=== PATIENT | male | born 1970 | race Caucasian/White ===

== ENCOUNTER 2020-10-03 11:25 | Emergency (ER) | payer OTHER, SELFPAY ==
[2020-10-03 11:38] VITALS: BP 160/95; PULSE 78; RESP 18; TEMP 36.8; O2SAT 100
--- NOTE | 2020-10-03 11:40 | ED.EXTPRO ---
HPI - Extremity Problem General Chief complaint: Extremity Injury, Lower Stated complaint: Knee Pain Time Seen by Provider: 10/03/20 12:02 Source: patient and RN notes reviewed Mode of arrival: ambulatory Limitations: no limitations History of Present Illness HPI Narrative: 49-year-old male presents concern for low back pain that radiates to the right hip, thigh, knee. Reports on Saturday he was lifting something heavy at work when he felt the pain began in his right low back/buttock area. Reports the pain is radiating to the thigh and the knee. Reports pain at rest, mildly aggravated pain with weightbearing. Denies pain or palpitation. Denies swelling, bruising, redness, warmth. Denies direct injury or trauma to the knee. Denies any open skin. Denies fever or general body aches. Denies history of gout. Denies intervention MD Complaint: extremity pain Related Data Allergies Allergy/AdvReac Type Severity Reaction Status Date / Time No Known Allergies Allergy Verified 10/03/20 11:43 Review of Systems Review of Systems: CONSTITUTIONAL: Denies malaise, chills, sweats, or fever. CARDIOVASCULAR: Denies chest pain, palpitations, or edema. RESPIRATORY: Denies cough or dyspnea. GASTROINTESTINAL: Denies abdominal pain, nausea, vomiting, diarrhea, bloody, or mucous stools. GENITOURINARY: Denies dysuria or hematuria. SKIN: Denies bruising, redness, open skin, rash or itching. MUSCULOSKELETAL: Reports right low back pain radiating to the right thigh and knee NEUROLOGIC: Denies numbness, weakness, or headache. pression. All systems reviewed & are unremarkable except as noted in HPI and below PMFSH Comments At time of signature, agree with nursing past medical, surgical, social and family history. There is no relevant family history pertinent to the presenting complaint Exam Narrative: GENERAL: Well-appearing, well-nourished, and in no acute distress. HEAD: Normocephalic, atraumatic. EYES: PERRLA and EOMI. NECK: Supple. No lymphadenopathy. CHEST: Clear to auscultation. No respiratory distress. HEART: Regular rate and rhythm. Distal pulses palpable and equal, cap refill <3 seconds MUSCULOSKELETAL: Grossly normal range of motion and strength in all extremities; 5/5 strength knee flexion and extension, plantar flexion and extension. Normal sensation in dermatomal distributions with sensitivity to light touch and pain. No midline back tenderness to palpation. No paraspinal tenderness. Transfers from lying to sitting to standing. Mild anterior knee tenderness, negative Lashay test, negative anterior drawer test, negative Lever test. SKIN: Warm, dry, no rash. No ecchymosis, erythema, open wounds to back. NEURO: No focal deficits. Alert and oriented x3. Reflexes intact. Normal gait. PSYCH: Normal mood and affect Course Course Emergency Course: Patient is aware of diagnosis, understands and agrees to treatment plan. Anticipatory guidance given. Patient agrees to follow-up as directed and is aware of reasons to seek care at the emergency department. Portions of this record may have been created with voice recognition software Vital Signs Vital signs: Vital Signs Temperature 98.2 F 10/03/20 11:38 Pulse Rate 78 10/03/20 11:38 Respiratory Rate 18 10/03/20 11:38 Blood Pressure 160/95 H 10/03/20 11:38 Pulse Oximetry 100 10/03/20 11:38 Temperature 98.2 F 10/03/20 11:38 Pulse Rate 78 10/03/20 11:38 Respiratory Rate 18 10/03/20 11:38 Blood Pressure 160/95 H 10/03/20 11:38 Pulse Oximetry 100 10/03/20 11:38 Reviewed. Pt has been instructed to follow up with his primary care provider within the next week regarding his elevated blood pressure today. MDM - Extremity (Nontraumatic) MDM Narrative Medical decision making narrative: No risk factors or findings concerning for epidural abscess, diskitis, vertebral osteomyelitis, cord compression, cauda equina, vertebral fracture or bone malignancy, AAA, or pyelonephritis.
== END 2020-10-03 12:21 | disposition home or self-care (01) ==
PROVIDERS: Emergency Provider Nurse Practitioner
DX: M54.31 Sciatica, right side (principal)
CPT/HCPCS: 99203; G0463

== ENCOUNTER 2021-03-02 09:52 | Emergency (ER) | payer OTHER, SELFPAY ==
[2021-03-02 10:04] VITALS: BP 167/90; PULSE 80; RESP 16; TEMP 36.6; O2SAT 95
--- NOTE | 2021-03-02 10:47 | PC.NURSE ---
pt denies receiving covid vaccine
[2021-03-02 11:02] LABS: Basophils Percent Auto 0.1 % (0.2-1.2); Eosinophils Absolute Auto 0.1 K/mm3 (0-0.3); Eosinophils Percent Auto 1.6 % (0-4.4); Hematocrit 51.3 % (42.0-52.0); Hemoglobin 17.2 g/dL (14.0-18.0); Immature Granulocyte Absolute 0.02 K/mm3 (0.00-0.031); Immature Granulocyte Percent A 0.3 % (0-0.5); Lymphocytes Absolute Auto 1.54 K/mm3 (0.9-3.2); Lymphocytes Percent Auto 19.3 % (18.3-44.2); Mean Corpuscular HGB Conc 33.5 g/dl (32-36); Mean Corpuscular Hemoglobin 30.6 pg (26-34); Mean Corpuscular Volume 91.1 fl (80-100); Mean Platelet Volume 8.6 fl (7.4-10.4); Monocytes Absolute Auto 0.8 K/mm3 (0.1-0.6); Monocytes Percent Auto 9.8 % (2.6-8.5); Neutrophils Absolute Auto 5.5 K/mm3 (1.3-6.7); Neutrophils Percent Auto 68.9 % (45.5-73.1); Platelet Count Result 337 k/mm3 (150-375); Red Blood Count 5.63 M/mm3 (4.6-6.20); Red Cell Distribution Width 13.3 % (11.5-14.5)
[2021-03-02 11:13] LABS: Alanine Aminotransferase 23 U/L (4-50); Albumin Level 4.7 g/dL (3.5-5.1); Alkaline Phosphatase 83 U/L (38-126); Anion Gap 11 mmol/L (8-16); Aspartate Amino Transferase 27 U/L (17-59); Bilirubin,Total 0.6 mg/dL (0.2-1.3); Blood Urea Nitrogen 14 mg/dL (9-20); Calcium 9.6 mg/dL (8.4-10.2); Carbon Dioxide 24 mmol/L (22-30); Chloride 103 mmol/L (98-107); Estimated CRCL calculation 141 ml/min; Estimated Glomerular Filt Rate > 60; Glucose 115 mg/dL (65-110); Lipase 131 U/L (23-300); Potassium 4.3 mmol/L (3.4-5.0); Sodium 138 mmol/L (137-145)
--- NOTE | 2021-03-02 12:32 | ED.GENADULT ---
HPI - General Adult General Chief complaint: Nausea/Vomiting/Diarrhea Stated complaint: nausea, vomiting, diarrhea Time Seen by Provider: 03/02/21 10:48 Source: patient Mode of arrival: ambulatory Limitations: no limitations History of Present Illness HPI narrative: Patient is a 50-year-old male with chief complaints of headache, body aches, nausea, vomiting, diarrhea over the last 2 days. Patient reports that he has been told that he has had many COVID exposures from work and wants to be tested. Patient denies any pain to his abdomen. He denies any fevers. He reports that he is able to keep down food and fluids. Patient denies any weakness, dizziness, changes to vision or hearing, chest pain, shortness of breath, neurological deficits. Patient reports that he wants to be tested for flu and COVID. Related Data Allergies Allergy/AdvReac Type Severity Reaction Status Date / Time No Known Allergies Allergy Verified 10/03/20 11:43 Review of Systems Review of Systems: CONSTITUTIONAL: Reports body denies fever, chills, or sweats. EYES: Denies visual changes, redness, or discharge. ENT: Denies rhinorrhea, congestion, sore throat, or otalgia. CARDIOVASCULAR: Denies chest pain, palpitations, or edema. RESPIRATORY: Denies cough or dyspnea. GASTROINTESTINAL: Reports nausea, vomiting, or diarrhea. Denies abdominal pain GENITOURINARY: Denies dysuria or hematuria. SKIN: Denies rash or itching. MUSCULOSKELETAL: Denies back pain, joint pain, or myalgia. NEUROLOGIC: Reports headache, denies numbness, dizziness, or weakness. PSYCHIATRIC: Denies anxiety or depression. Exam Narrative: GENERAL: Well-appearing, well-nourished, and in no acute distress. Nontoxic in appearance. HEAD: Normocephalic, atraumatic. EYES: PERRLA and EOMI. NECK: Supple. Range of motion intact without nuchal rigidity. CHEST: Clear to auscultation. No respiratory distress. No wheezes rales or rhonchi HEART: Regular rate and rhythm. ABDOMEN: Soft, nontender, nondistended, normal active bowel sounds. EXTREMITIES: Normal range of motion. No edema. SKIN: Warm, dry, no rash. NEURO: No focal deficits. Alert and oriented x3. PSYCH: Normal mood and affect. Course Vital Signs Vital signs: Vital Signs Temperature 97.9 F 03/02/21 10:04 Pulse Rate 80 03/02/21 10:04 Respiratory Rate 16 03/02/21 10:04 Blood Pressure 167/90 H 03/02/21 10:04 Pulse Oximetry 95 03/02/21 10:04 Temperature 97.9 F 03/02/21 10:04 Pulse Rate 80 03/02/21 10:04 Respiratory Rate 16 03/02/21 10:04 Blood Pressure 167/90 H 03/02/21 10:04 Pulse Oximetry 95 03/02/21 10:04 Medical Decision Making MDM Narrative Medical decision making narrative: Patient is nontoxic in appearance. Patient vitals are stable. Patient does have some hypertension noted. Patient white blood cell count is within normal ranges and his lab work is without significant findings. Patient has been tested for influenza which was negative. Patient has been tested for COVID. Discussed the needs to quarantine and look on the patient portal for his COVID results in 24 to 48 hours. Patient has been instructed to return to emergency department should he develop any emergent symptoms. Patient denies any fluids or medications in emergency department. He is agreeable with Zofran prescription for home. Patient has been able to tolerate food and fluids p.o. Patient denies any other needs or concerns. Patient states he is ready for discharge at this time. Vital Signs Vital Signs: Vital Signs Temperature 97.9 F 03/02/21 10:04 Pulse Rate 80 03/02/21 10:04 Respiratory Rate 16 03/02/21 10:04 Blood Pressure 167/90 H 03/02/21 10:04 Pulse Oximetry 95 03/02/21 10:04 Temperature 97.9 F 03/02/21 10:04 Pulse Rate 80 03/02/21 10:04 Respiratory Rate 16 03/02/21 10:04 Blood Pressure 167/90 H 03/02/21 10:04 Pulse Oximetry 95 03/02/21 10:04 Lab Data Result diagrams: 03/02/21 10
[2021-03-02 20:41] LABS: SARS-CoV-2 RNA PCR Negative
== END 2021-03-02 12:04 | disposition home or self-care (01) ==
PROVIDERS: Physician Assistant; Emergency Provider Emergency Medicine
DX: R51.9 Headache, unspecified (principal); Z20.822 Contact with and (suspected) exposure to COVID-19
CPT/HCPCS: 36415; 80053; 83690; 85025; 87804; 99283; C9803; U0003; U0005

== ENCOUNTER 2021-06-09 22:37 | Emergency (ER) | payer OTHER, SELFPAY ==
--- NOTE | ~2021-06-09 | XR_ITS ---
EXAMINATION: XR knee LT 3V DATE: 06/09/2021 23:01 INDICATION: Blunt trauma to the left knee TECHNIQUE: Anteroposterior, 2 oblique and crosstable lateral views of the affected knee were obtained COMPARISON: None. FINDINGS: Alignment is normal. No fracture. Joint spaces are normal. L2-3 millimeters thin wire-like metallic foreign body projecting over the Hoffa's fat pad at the anterolateral left knee. No joint effusion/la yering lipohemarthrosis. Prepatellar soft tissue swelling. IMPRESSION: 1. No left knee joint effusion or osseous abnormality. 2. Age indeterminate tiny metallic foreign body in the soft tissues at the anterolateral left knee. Reviewed, dictated and finalized at location A. IMPRESSION: 1. No left knee joint effusion or osseous abnormality. 2. Age indeterminate tiny metallic foreign body in the soft tissues at the ante rolateral left knee.
[2021-06-09 22:44] VITALS: BP 154/96; PULSE 88; RESP 18; TEMP 36.8; O2SAT 96
--- NOTE | 2021-06-09 23:21 | ED.LOWEXIN ---
HPI - Extremity Injury (Lower) General Chief Complaint: Extremity Injury, Lower Stated Complaint: hurt left knee at work Time Seen by Provider: 06/09/21 22:47 History of Present Illness HPI Narrative: 50-year-old male presents to the emergency room for evaluation of left knee pain. Patient states he was at work and he accidentally dropped an oil pad with approximately 40 pounds with a foil onto his left knee. Patient states pain is worse with ambulation and movement. Related Data Allergies Allergy/AdvReac Type Severity Reaction Status Date / Time No Known Allergies Allergy Verified 10/03/20 11:43 Review of Systems Review of Systems: CONSTITUTIONAL: Denies fever, chills, or sweats. EYES: Denies visual changes, redness, or discharge. ENT: Denies rhinorrhea, congestion, sore throat, or otalgia. CARDIOVASCULAR: Denies chest pain, palpitations, or edema. RESPIRATORY: Denies cough or dyspnea. GASTROINTESTINAL: Denies abdominal pain, nausea, vomiting, or diarrhea. GENITOURINARY: Denies dysuria or hematuria. SKIN: Denies rash or itching. MUSCULOSKELETAL: Reports left knee pain NEUROLOGIC: Denies headache, numbness, dizziness, or weakness. PSYCHIATRIC: Denies anxiety or depression. Exam Narrative: GENERAL: Well-appearing, well-nourished, and in no acute distress. HEAD: Normocephalic, atraumatic. EYES: PERRLA and EOMI. CHEST: Clear to auscultation. No respiratory distress. No wheezes rales or rhonchi HEART: Regular rate and rhythm. No murmur heard. Normal peripheral pulses. EXTREMITIES: Normal range of motion. No edema. Left knee: Tenderness, soft tissue swelling to the posterior lateral surface of the patella. No patellar tracking. No bony abnormality. No clicking. Range of motion is limited due to pain. SKIN: Warm, dry, no rash. NEURO: No focal deficits. Alert and oriented x3. PSYCH: Normal mood and affect. Course Vital Signs Vital signs: Vital Signs Temperature 36.8 C 06/09/21 22:44 Pulse Rate 88 06/09/21 22:44 Respiratory Rate 18 06/09/21 22:44 Blood Pressure 154/96 H 06/09/21 22:44 Pulse Oximetry 96 06/09/21 22:44 Temperature 36.8 C 06/09/21 22:44 Pulse Rate 88 04/22/22 22:44 Respiratory Rate 18 06/09/21 22:44 Blood Pressure 154/96 H 06/09/21 22:44 Pulse Oximetry 96 06/09/21 22:44 MDM - Extremity Injury (Lower) MDM Narrative Medical decision making narrative: 50-year-old male presented to emergency room with complaints of a left knee pain after dropping a 50 pound well-padded onto it. X-ray shows calcification of the quadriceps tendon but no bony abnormality to the patella. Imaging Data My impression: no acute bony abnormality Discharge Plan Discharge Clinical Impression: Contusion of knee, left Qualifiers: Encounter type: initial encounter Qualified Code(s): S80.02XA - Contusion of left knee, initial encounter Patient Disposition: Home, Self-Care Condition: Stable Instructions: Antibiotic Form Additional Instructions: Recommend applying ice to affected area for the first 48 hours following your injury. Rest. May take Tylenol along with naproxen as needed for pain. Prescriptions: New naproxen 500 mg tablet 500 mg PO BID 7 Days Qty: 14 RF: 0 No Action ondansetron 4 mg tablet,disintegrating 4 mg PO Q6H PRN (Reason: nausea and vomiting) Qty: 20 RF: 0 Follow-up/Referrals: PHYSICIAN,NUCLEAR OPERATIONS SPECIALIST [Primary Care Provider] - Keanu Sethi MD [Physician] - Time of Disposition: 23:38
[2021-06-09] MEDS: KETOROLAC (*BKC) 60 MG/2 ML VIAL IM (23:50)
== END 2021-06-10 00:05 | disposition home or self-care (01) ==
LOC: ANHED 06-10 00:06
PROVIDERS: Emergency Provider Nurse Practitioner Family
DX: S80.02XA Contusion of left knee, initial encounter (principal); W20.8XXA Other cause of strike by thrown, projected or falling object, initial encounter
CPT/HCPCS: 73562; 96372; 99283; J1885